=== PATIENT | female | born 1975 | race Caucasian/White ===

== ENCOUNTER → 2024-12-30 | Outpatient (CLI) | payer BC, MEDICARE ==
--- NOTE | 2024-12-30 08:11 | CT ---
EXAMINATION TYPE: CT cervical spine wo con DATE OF EXAM: 12/30/2024 7:49 AM COMPARISON: None. CLINICAL INDICATION: Female, 49 years old with history of M54.2 CERVICALGIA Z48.81 Z47.89 M62.81; nec k pain radiating down back TECHNIQUE: Axial CT images from the skull base to the inferior aspect of T2 we obtained without intra venous contrast. Coronal and sagittal reformatted images were also reviewed. Contrast used: mL of , (if blank None) Oral contrast used: (if blank None) CT DLP: 251 mGycm, Automated exposure control for dose reduction was used. FINDINGS: Fracture: None. Osseous structures: Postsurgical changes of the spine at C5-C6 anteriorly and C4-C5 and C6 posteriorl y. Scattered osteophytes and facet joint arthropathy throughout the spine. Discectomy at C5-C6. Hardw are appears intact. Vertebral alignment: Alignment within normal limits. Spinal canal/Neural Foramina: Disc osteophyte complexes at C3-C6. With at least mild spinal canal akilah nosis. Facet joint uncovertebral joint arthropathy scattered throughout the cervical spine with varyi ng degrees of neural foraminal stenosis. No foraminal stenosis worse at C4-C5 with mild to moderate b ilateral Neck soft tissues: Prevertebral soft tissues are within normal limits. Other: The airway is patent. The lung apices are clear. IMPRESSION: Postsurgical changes no evidence for fracture. No evidence for hardware failure. No evidence for sign ificant neural foraminal or spinal canal stenosis [facility], , 12/30/2024 8:08 AM
--- NOTE | 2024-12-30 09:34 | MR ---
EXAMINATION TYPE: MR cervical spine wo con DATE OF EXAM: 12/30/2024 8:50 AM COMPARISON: None CLINICAL INDICATION: Female, 49 years old with history of M54.2 CERVICALGIA Z48.81 Z47.89 M62.81, HEA DACHES, PAIN, NUMBNESS, LIMITED MOBILITY, STIFFNESS SINCE 2012 TECHNIQUE: Multiplanar, multisequence images of the cervical spine were acquired without contrast. FINDINGS: No craniocervical junction abnormality, predental space widening, or prevertebral soft tissue swellin g. There is postsurgical change of C5-C6 ACDF. Posterior cervical fusion C4-C6 levels. Moderate degenerative disc disease above the ACDF at C4-C5 with a large posterior annular fissure ext ending right laterally. Mild degenerative disc disease with desiccated and minimally bulging discs va riably at other levels. There is a right paracentral broad-based disc bulge at T2-T3. Facet arthropathy and trace grade 1 ant erolisthesis here. Additional trace grade 1 retrolisthesis C3-C4 due to moderate facet and uncovertebral joint arthropat hy. No suspicious bone marrow replacement. Background congenital spinal canal stenosis with negative AP canal dimension of 9 mm. 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 No other discrete cord signal abnormality is seen overlying for metal artifacts. Bulging disc at C2-C3 and C3-C4 accentuates the mild congenital spinal canal stenosis. No lise cord compression. At C2-C3, uncovertebral joint and facet arthropathy resulting in mild left neuroforaminal stenosis. At C3-C4, change results in mild left neuroforaminal stenosis. At C6/C7, uncovertebral joint and facet arthropathy resulting in mild left neural foraminal stenosis. IMPRESSION: 1. Previous C5-C6 ACDF and C4-C6 posterior cervical fusion changes. There is evidence of chronic comp ressive myelomalacia of the cervical spinal cord at the C6 level. 2. Mild congenital spinal canal stenosis with superimposed mild degenerative disc disease characteriz ed by desiccated and mildly bulging discs. This accentuates the mild spinal canal stenosis particular ly at C2-C3 and C3-C4. No high-grade canal compromise. 3. Large annular fissure swinging to the right at the C4-C5 level. 4. [id number] facet and uncovertebral joint arthropathy. This results in mild left neuroforamin al stenoses at C2-C3, C3-C4, and C6-C7. 5. Degenerative grade 1 spondylolisthesis C3-C4 and T2-T3. [facility], Workstation: [place], 12/30/2024 9:32 AM
== END | disposition home or self-care (01) ==
LOC: RADCTMAIN 07:29
PROVIDERS: ATTEND Orthopaedic Surgery
DX: Z48.810 Encounter for surgical aftercare following surgery on the sense organs (principal); Z47.89 Encounter for other orthopedic aftercare; M48.02 Spinal stenosis, cervical region; M50.321 Other cervical disc degeneration at C4-C5 level; M43.12 Spondylolisthesis, cervical region; M47.812 Spondylosis without myelopathy or radiculopathy, cervical region; G95.89 Other specified diseases of spinal cord
CPT/HCPCS: 72125; 72141